=== PATIENT | female | born 1955 | race American Indian/Alaskan Native ===

== ENCOUNTER 2025-08-28 15:39 | Emergency (ER) | payer MEDICARE ==
[~2025-08-28] VITALS: Ht 154.9 cm; Wt 65.9 kg
[2025-08-28 15:44] VITALS: BP 160/95; PULSE 107; O2SAT 98
--- NOTE | 2025-08-28 15:44 | Physician Documentation ---
History of Present Illness ~ General Stated Complaint: MULTIPLE MED COMPLAINTS Time Seen by MD: 18:00 History of Present Illness Initial Comments 69-year-old female who presents due to concerns for stroke symptoms. She reports history of ischemic stroke in the past, causing left-sided deficits at that time. Today, her concern is for some tingling in my head. she also has some difficulties with her right foot, which she describes as foot drop. The foot drop issue has been present in context of worsening of her chronic low back pain since July. She denies any recent trauma, chills, fever, chest pain, shortness of breath. The tingling she is describing in her head reportedly involves her entire head, not just one side or the other. Negative stroke scale in triage and EOMs intact. Able to toe walk bilat but can only heel walk on left, not right. Medication Reconciliation Allergies: Coded Allergies: No Known Allergies (Unverified , 08/28/25) Physical Exam Physical Exam Physical Exam General: Alert, no apparent distress. HEENT: PERRL, EOMI, no injection, moist mucous membranes. Neck: Full range of motion. Respiratory: Lungs clear, no respiratory distress. Chest: No accessory muscle use. Cardiovascular: Regular rate and rhythm, no murmurs. Gastrointestinal: Soft, nontender, nondistended. Bowels sounds present. Extremities: Normal range of motion, no deformity. Neurologic: Oriented x4. Negative stroke scale. Can toe walk bilat. Can heel walk on left but not right. No focal deficits. Psychiatric: Normal mood and affect. Skin: Normal color, warm and dry. No edema, no ecchymosis. Progress Results/Orders Results/Orders Orders - ROJELIO ARMSTRONG Mri Lumbar Spine (08/28/25 19:10) Completed Orders - ROJELIO ARMSTRONGP Mri Lumbar Spine (08/28/25 19:10) Lorazepam Tablet (Ativan Tablet) (08/28/25 18:45) Lorazepam Tablet (Ativan Tablet) (08/28/25 18:45) Medications Received in ER Medications (Trade) Dose Ordered Sig/Emanuel Route PRN Reason Start Time Stop Time Status Last Admin Dose Admin (Ativan tablet) 0.5 mg ONCE ONCE PO 08/28/25 18:45 08/28/25 18:46 DC 08/28/25 18:56 0.5 MG Vital Signs 12/4/25 12/4/25 15:44 18:56 Temp 95.6 Pulse 107 Resp 15 18 B/P (MAP) 160/95 Pulse Ox 98 Medical Decision Making Additional information obtaine: N/A Findings No previous visits to this facility. Differential Diagnosis Most Likely Diagnoses: L5 radiculopathy from lumbar disc herniation or foraminal stenosis: The combination of right foot drop with worsening chronic low back pain strongly suggests L5 nerve root compression, the most common cause of foot drop from radiculopathy. L5 radiculopathy typically presents with weakness of ankle dorsiflexion and toe extension (foot drop), pain radiating dorsolaterally down the thigh and lateral leg, and sensory changes over the dorsum of the foot. The recent worsening of chronic low back pain suggests [id number] disc pathology or progressive foraminal narrowing. Weakness is present in less than half of sciatica patients but can be severe enough to cause foot drop in L5 radiculopathy. [1] Common peroneal (fibular) nerve compression neuropathy at the fibular head: This is the most common entrapment neuropathy of the lower extremity and classically presents with acute complete or partial foot drop. Compression at the fibular head can occur from prolonged leg crossing, recent weight loss, or external pressure. Associated numbness over the dorsum of the foot and lateral leg may be present. The bilateral head tingling would require a separate explanation, making this diagnosis less likely to account for the full clinical picture. [2] Length-dependent peripheral polyneuropathy (LDPN): The bilateral head tingling (likely representing fingertip paresthesias) combined with foot symptoms could suggest a symmetric length-dependent polyneuropathy. LDPN typically affects the longest nerves first, causing symptoms in the toes and feet that progress proximally, with fingertip symptoms appearing when lower extremity symptoms reach the knees. However, isolated unilateral foot drop would be atypical for symmetric polyneuropathy unless there is superimposed focal nerve compression. [3] Lumbosacral plexopathy: Damage to the lumbosacral plexus from degenerative spine disease, diabetes, or mass lesions can cause foot drop with associated sensory symptoms. The chronic low back pain with recent worsening could reflect progressive degenerative changes affecting the plexus. However, plexopathy typically causes more diffuse lower extremity weakness beyond isolated foot drop. Sciatic neuropathy or piriformis syndrome: Compression of the sciatic nerve can cause foot drop if the peroneal division is preferentially affected. Piriformis syndrome presents with focal mid-buttock pain, tenderness over the sciatic notch, and aggravation with sitting. The chronic low back pain and recent worsening could be consistent with this diagnosis, though the bilateral head tingling would require alternative explanation. [1] Most Important Not to Miss Diagnoses: Cauda equina syndrome: Rule out with urgent MRI of the lumbar spine and careful assessment for red flag symptoms including saddle anesthesia, bladder or bowel dysfunction (urinary retention, incontinence), bilateral leg weakness or numbn ess, and severe or progressive neurologic deficit. All current guidelines recommend urgent MRI with the presence of red flag findings, as cauda equina syndrome is a surgical emergency requiring decompression within 48 hours to prevent permanent neurologic injury. Perform digital rectal examination to assess sphincter tone and post-void residual measurement if bladder symptoms are present. The combination of foot drop with chronic low back pain warrants specific questioning about these red flags. Patient denies saddle anesthesia, changes in urinary pattern, or new incontinence. [4] Spinal cord compression from cervical or thoracic pathology: Rule out with urgent MRI of the cervical and thoracic spine if there are upper motor neuron signs (hyperreflexia, clonus, Babinski sign), gait instability, hand dexterity problems, or bowel/bladder dysfunction. The bilateral head tingling could represent cervical radiculopathy or myelopathy from degenerative cervical spondylosis. Examine for hyperreflexia in the lower extremities, which would be inconsistent with isolated peripheral nerve pathology and suggest central cord involvement. Assess for Romberg's sign, ataxia, and intrinsic hand muscle atrophy. Not noted to have gait instability, hand dexterity problems, or bowel/bladder dysfunction. [5] Stroke or TIA affecting the motor cortex: Rule out with urgent noncontrast head CT followed by brain MRI with diffusion-weighted imaging (DWI) ideally within 24 hours. While the negative stroke scale is reassuring, isolated foot drop can rarely result from cortical or subcortical stroke affecting the motor homunculus. The bilateral head tingling could represent sensory cortex involvement. MRI with DWI demonstrates lesions in approximately 40% of patients presenting with TIA symptoms and is essential to exclude cerebral ischemia. Assess vascular risk factors and perform comprehensive stroke workup if imaging suggests ischemia. No unilateral deficits, and patient notes that the "foot drop" has been present for weeks and its onset was when back pain worsened. [6] Spinal epidural abscess or malignancy: Rule out with urgent MRI of the entire spine with and without contrast if there are red flag features including fever, recent infection or bacteremia, immunocompromised status, history of cancer, unexplained weight loss, night sweats, or severe nocturnal pain. Epidural abscess requires emergency surgical decompression and antibiotics. Check inflammatory markers (ESR, CRP), complete blood count, and blood cultures if infection is suspected. The chronic low back pain with recent worsening could represent progressive spinal pathology from tumor or infection. No fever, weight loss, hx of IVDU, or other concerns that make this differential diagnosis likely. [5] MRI did not demonstrate evidence of cauda equina, likely pain and foot weakness due to radiculopathy require outpatient follow up. Patient is otherwise well- appearing and appropriate for outpatient follow up, patient already has muscle relaxers prescribed and we will be discharged with Lidoderm patches and home care instructions. Patient provided careful return to care precautions which she verbalized understanding and home care instructions and follow up instructions. Departure Time of Disposition: 21:14 Disposition: 01 HOME / SELF CARE / HOMELESS Impression: Primary Impression: Lumbar radiculopathy Condition: Improved Discharge Instructions: Lumbosacral Radiculopathy Additional Instructions: Follow up with her primary care provider in the next few days for referral to oil fire specialist for further management of your back pain and radiculopathy. Please follow up with your primary care provider in the next few days. Please return to the emergency department for any new or worsening concerning symptoms including but not limited to worsening weakness and numbness in your legs, numbness or tingling to your groin, or loss of bowel or bladder control. Referrals: NO PRIMARY CARE PROVIDER (PCP) Signature Scribe Signature: x Attestation: The note accurately reflects work and decisions made by me.Leticia Guzman NP 08/28/25 15:54 LETICIA CALIX NP Aug 28, 2025 15:44 ROJELIO ARMSTRONG Aug 28, 2025 21:15
--- NOTE | 2025-08-28 20:43 | RADIOLOGY REPORT ---
CLINICAL HISTORY: Lumbar Back Pain w Right Foot Weakness TECHNIQUE: MRI of the lumbar spine was performed with without contrast. WID: COMPARISON: None FINDINGS: This report assumes 5 lumbar type vertebral bodies. Lumbar alignment is maintained. The conus medullaris terminates at T12-L1. There is no fracture or marrow edema At L1-L2, No neuroformaninal or spinal canal narrowing At L2-L3,No neuroformaninal or spinal canal narrowing At L3-L4, there is a small broad-based posterior disc protrusion which results in mild bilateral neural foraminal narrowing. There is moderate disc height loss. At L4-L5, broad-based posterior disc bulge with facet arthrosis which results in mild spinal canal narrowing and moderate left and moderate right neural foraminal narrowing. There is mild disc desiccation and height loss. At L5-S1, there is a small central disc protrusion which results in mild spinal canal narrowing. The neural foramina are patent. IMPRESSION: Multilevel discogenic and spondylotic degenerative changes worst at L4-L5 where there is moderate bilateral neural foraminal narrowing.
[2025-08-28 21:25] VITALS: TEMP 95.6
[2025-08-28 21:32] VITALS: RESP 18
[2025-08-28] MEDS: dexamethasone sod phosphate 10mg/ml inj PO STA (21:32)
[2025-08-28] MEDS: HYDROcodone/acetaminophen 5mg/325mg tablet PO ONE (21:32)
== END 2025-08-28 21:34 | disposition home or self-care (01) ==
LOC: ER 15:41
DX: M54.16 Radiculopathy, lumbar region (principal); Z86.73 Personal history of transient ischemic attack (TIA), and cerebral infarction without residual deficits
CPT/HCPCS: 72148; 99284; J1100